=== PATIENT | male | born 1975 | race Caucasian/White ===

== ENCOUNTER 2017-05-26 19:42 | Emergency (ER) | payer OTHER ==
[~2017-05-26] VITALS: Wt 102.1 kg
[~2017-05-26 19:42] MED LIST: FLEXERIL10 MG PO; HYDROCOD BIT &1 TAB; VICODIN ES 7501 TAB PO
[2017-05-26] MEDS ORDERED: MORPHINE SULFAT60 M4 PO (19:49)
[2017-05-26] MEDS ORDERED: KADIAN30 M1 PO (19:49)
[2017-05-26] MEDS ORDERED: SYNTHROID,LEV112 MCG PO (19:50)
[2017-05-26] MEDS ORDERED: PREDNISONE20 M1 PO (20:00)
== END 2017-05-26 20:36 | disposition home or self-care (01) ==
LOC: ED 19:42
DX: L24.7 Irritant contact dermatitis due to plants, except food (principal); Z79.899 Other long term (current) drug therapy

== ENCOUNTER 2018-02-13 09:12 | Emergency (ER) | payer SELFPAY ==
[~2018-02-13] VITALS: Ht 175.2 cm; Wt 97.5 kg
[~2018-02-13 09:12] MED LIST changes: +KADIAN30 M1 PO; +MORPHINE SULFAT60 M4 PO; +PREDNISONE20 M1 PO; +SYNTHROID,LEV112 MCG PO
[2018-02-13 09:33] LABS: BASO % 0.1 % (0.0-1.0); EOS # 0.1 10*3/uL (0.0-0.4); EOS % 0.8 % (1.0-4.0); HEMATOCRIT 49.3 % (42.0-52.0); HEMOGLOBIN 16.3 g/dl (14.0-18.0); MEAN CELL VOLUME 87.7 fl (80.0-94.0); MEAN CORPUSCULAR HGB CONC 33.1 g/dl (33.0-37.0); MEAN PLATELET VOLUME 9.3 fl (9.6-12.3); MONO # 1.1 10*3/uL (0.1-1.0); MONO % 8.4 % (3.0-9.0); NEUT # 9.8 10*3/uL (2.3-7.9); NEUT % 75.4 % (47.0-73.0); PLATELET COUNT AUTOMATED 260 10*3/uL (130-400); RED BLOOD COUNT 5.62 10*6/uL (4.50-5.90); RED CELL DISTRI WIDTH 12.2 % (0-14.5)
[2018-02-13 09:49] LABS: ALBUMIN 3.9 gm/dl (3.1-4.5); ALKALINE PHOSPHATASE 107 U/L (45-117); BUN 15 mg/dl (7-24); CHLORIDE 101 mmol/L (98-107); CREATININE 1.22 mg/dL (0.70-1.30); POTASSIUM 3.6 mmol/L (3.5-5.1); SGOT/AST 22 IU/L (3-35); SGPT/ALT 35 U/L (12-78); SODIUM 139 mmol/L (136-145); TOTAL PROTEIN 7.8 gm/dL (6.4-8.2)
[2018-02-13] MEDS ORDERED: ZOFRAN4 MG PO (10:30)
[2018-02-13] MEDS ORDERED: NAPROSYN500 MG PO (10:30)
[2018-02-13] MEDS ORDERED: SEPTDS PO (10:30)
== END 2018-02-13 10:32 | disposition home or self-care (01) ==
LOC: ED 09:12
PROVIDERS: Nurse Practitioner Family
DX: N20.0 Calculus of kidney (principal); R03.0 Elevated blood-pressure reading, without diagnosis of hypertension; N13.30 Unspecified hydronephrosis; Z79.899 Other long term (current) drug therapy

== ENCOUNTER 2019-09-10 16:44 | Emergency (ER) | payer SELFPAY ==
[~2019-09-10] VITALS: Ht 175.2 cm; Wt 104.3 kg
[~2019-09-10 16:44] MED LIST changes: +NAPROSYN500 MG PO; +SEPTDS PO; +ZOFRAN4 MG PO
[2019-09-10 17:59] LABS: BILIRUBIN NEGATIVE (NEGATIVE); BLOOD 3+ (NEGATIVE); CLARITY CLEAR (CLEAR); COLOR YELLOW (YELLOW); GLUCOSE NEGATIVE (NEGATIVE); KETONE NEGATIVE (NEGATIVE); LEUKO ESTERASE NEGATIVE (NEGATIVE); NITRITE NEGATIVE (NEGATIVE); SPECIFIC GRAVITY >= 1.030 (1.005-1.030); UROBILINOGEN 0.2 E.U./dl (0.2-1.0)
[2019-09-10 18:06] LABS: BASO % 0.1 % (0.0-1.0); HEMATOCRIT 43.7 % (42.0-52.0); HEMOGLOBIN 14.7 g/dl (14.0-18.0); LYMPH # 1.5 10*3/uL (1.3-4.4); LYMPH % 8.8 % (27.0-41.0); MEAN CELL VOLUME 87.9 fl (80.0-94.0); MEAN CORPUSCULAR HGB 29.6 pg (27.0-31.0); MEAN CORPUSCULAR HGB CONC 33.6 g/dl (33.0-37.0); MEAN PLATELET VOLUME 9.6 fl (9.6-12.3); MONO # 0.9 10*3/uL (0.1-1.0); MONO % 5.5 % (3.0-9.0); NEUT # 14.2 10*3/uL (2.3-7.9); NEUT % 85.1 % (47.0-73.0); PLATELET COUNT AUTOMATED 329 10*3/uL (130-400); RED BLOOD COUNT 4.97 10*6/uL (4.50-5.90); RED CELL DISTRI WIDTH 13.1 % (0-14.5); WHITE BLOOD COUNT 16.7 10*3/uL (4.8-10.8)
[2019-09-10 18:07] LABS: BACTERIA TRACE; RBC 41-50 rbc/hpf (0-2)
[2019-09-10 18:08] LABS: MUCOUS 3+
[2019-09-10 18:22] LABS: ALBUMIN 3.6 gm/dl (3.1-4.5); ALKALINE PHOSPHATASE 82 U/L (45-117); BUN 13 mg/dl (7-24); CHLORIDE 104 mmol/L (98-107); CREATININE 1.11 mg/dL (0.70-1.30); LIPASE 101 U/L (73-393); POTASSIUM 3.2 mmol/L (3.5-5.1); SGOT/AST 15 IU/L (3-35); SGPT/ALT 33 U/L (12-78); SODIUM 137 mmol/L (136-145); TOTAL PROTEIN 7.4 gm/dL (6.4-8.2)
[2019-09-10] MEDS ORDERED: FLOMAX0.4 MG PO (19:39)
[2019-09-10] MEDS ORDERED: ZOFRAN4 MG PO (19:39)
[2019-09-10] MEDS ORDERED: ANAPROX DS550 MG PO (19:39)
== END 2019-09-10 20:04 | disposition home or self-care (01) ==
LOC: ED 16:44
PROVIDERS: Physician Assistant
DX: R31.9 Hematuria, unspecified (principal); N20.0 Calculus of kidney; R30.0 Dysuria; G89.29 Other chronic pain; Z87.442 Personal history of urinary calculi; Z79.899 Other long term (current) drug therapy